=== PATIENT | female | born 1965 | race Caucasian/White ===

== ENCOUNTER 2016-05-07 09:30 | Outpatient (CLI) ==
--- NOTE | 2016-05-07 10:27 | US ---
EXAM: Thyroid ultrasound HISTORY: Nontoxic multinodular goiter. COMPARISON: Thyroid ultrasound 09/16/[address] facial bone 01/21/2008 TECHNIQUE: Sonographic evaluation of the thyroid was performed with limited doppler. FINDINGS: Right thyroid lobe measures 5.5 x 2.7 x 3.2 cm. There is mild heterogeneous echotexture. There is increased color Doppler flow. A 4.8 x 3.8 x 2.6 cm (prior 2.5 x 3.3 x 4.3 cm) heterogeneous right th yroid mass is present. This mass demonstrates increased vascularity. The isthmus measures 0.4 cm in thickness. The left lobe of the thyroid measures 4.4 x 1.0 x 2.1 cm. There is an internal solid nodule with ce ntral decreased echogenicity measuring 1.4 x 0.7 x 0.8 cm (prior 0.8 x 0.9 x 1.0 cm). This demonstr ates mild internal color Doppler flow. IMPRESSION: 1. Hypervascular right thyroid lesion/mass measures slightly enlarged when compared to 2015. The in creased measurements may be secondary to measuring technique or represent minimal increase size over time. If further evaluation is indicated, soft tissue sampling may be obtained. 2. Nodule in the left thyroid lobe is unchanged in appearance and measures minimally increased in c omparison to prior.
== END 2016-05-07 09:31 | disposition home or self-care (01) ==
LOC: RAD 09:30
PROVIDERS: ATTEND Nurse Practitioner Family
DX: E04.2 Nontoxic multinodular goiter (principal)

== ENCOUNTER 2016-05-08 06:43 | Outpatient (CLI) ==
[2016-05-08 06:55] LABS: BASOPHILS % (AUTO) 0.6 % (0.0-3.0); EOSINOPHILS # (AUTO) 0.2 K/ul (0.0-0.7); EOSINOPHILS % (AUTO) 3.4 % (0.0-7.0); HEMATOCRIT 38.9 % (37.0-47.0); HEMOGLOBIN 12.9 g/dl (12.0-16.0); IMMATURE GRANULOCYTE % (AUTO) 0.3 % (0.0-5.0); LYMPHOCYTES # (AUTO) 1.9 K/uL (0.60-3.4); LYMPHOCYTES % (AUTO) 29.1 (10.0-50.0); MEAN CORPUSCULAR HEMOGLOBIN 29.1 pg (27.0-31.0); MEAN CORPUSCULAR HGB CONC 33.2 (31.8-35.4); MEAN CORPUSCULAR VOLUME 87.6 fl (81.0-99.0); MONOCYTES # (AUTO) 0.7 K/uL (0.4-2.0); MONOCYTES % (AUTO) 10.1 (0-10); NEUTROPHILS # (AUTO) 3.7 K/ul (2.0-6.9); NEUTROPHILS % (AUTO) 56.5; PLATELET COUNT 282 10^3/uL (140-440); RED BLOOD COUNT 4.44 10^6/ul (4.20-5.40); WHITE BLOOD COUNT 6.54 K/ul (4.6-10.2)
[2016-05-08 07:31] LABS: ALBUMIN 3.6 g/dL (3.4-5.0); ALBUMIN/GLOBULIN RATIO 1.09; ANION GAP 12.8; BILIRUBIN,TOTAL 0.51 mg/dL (0.00-1.20); BUN/CREATININE RATIO 10.71; CHOL/HDL RATIO 2.9 (4.5-5.5); CREATININE 0.84 mg/dL (0.60-1.30); POTASSIUM 3.8 mmol/L (3.5-5.10); TOTAL PROTEIN 6.9 g/dL (6.4-8.2)
== END 2016-05-08 06:44 | disposition home or self-care (01) ==
LOC: RAD 06:43
PROVIDERS: ATTEND Nurse Practitioner Family
DX: Z12.31 Encounter for screening mammogram for malignant neoplasm of breast (principal); Z00.00 Encounter for general adult medical examination without abnormal findings
CPT/HCPCS: 36415; 80053; 80061; 84443; 85025

== ENCOUNTER 2017-07-16 15:18 | Outpatient (CLI) | END 2017-07-16 15:19 | disposition home or self-care (01) | LOC: RHC-LAB 15:18 | PROVIDERS: ATTEND Emergency Medicine | DX: F32.1 Major depressive disorder, single episode, moderate (principal); F41.1 Generalized anxiety disorder; I83.893 Varicose veins of bilateral lower extremities with other complications; E04.1 Nontoxic single thyroid nodule | CPT/HCPCS: 36415; 80053; 80061; 84436; 84443; 84480; 85025 ==

== ENCOUNTER 2017-08-26 15:34 | Outpatient (CLI) | END 2017-08-26 15:35 | disposition home or self-care (01) | LOC: CAR 15:34 | PROVIDERS: ATTEND Emergency Medicine | DX: I83.893 Varicose veins of bilateral lower extremities with other complications (principal); R00.2 Palpitations | CPT/HCPCS: 93005; 93010 ==

== ENCOUNTER 2017-09-08 12:50 | Outpatient (CLI) | END 2017-09-08 12:51 | disposition home or self-care (01) | LOC: CAR 12:50 | PROVIDERS: ATTEND Emergency Medicine | DX: R00.2 Palpitations (principal) | CPT/HCPCS: 93227 ==

== ENCOUNTER 2017-11-17 15:59 | Outpatient (CLI) | END 2017-11-17 16:00 | disposition home or self-care (01) | LOC: RHC-LAB 15:59 | PROVIDERS: ATTEND Nurse Practitioner Family | DX: J02.9 Acute pharyngitis, unspecified (principal) | CPT/HCPCS: 87651 ==

== ENCOUNTER 2018-01-20 08:19 | Outpatient (CLI) | END 2018-01-20 08:20 | disposition home or self-care (01) | LOC: LAB 08:19 | PROVIDERS: ATTEND Nurse Practitioner Family | DX: E89.0 Postprocedural hypothyroidism (principal) | CPT/HCPCS: 36415; 84439; 84443 ==

== ENCOUNTER 2018-08-11 11:51 | Outpatient (CLI) | END 2018-08-11 11:52 | disposition home or self-care (01) | LOC: RHC-LAB 11:51 | PROVIDERS: ATTEND Nurse Practitioner Family | DX: E89.0 Postprocedural hypothyroidism (principal); F32.9 Major depressive disorder, single episode, unspecified; E03.9 Hypothyroidism, unspecified; F41.1 Generalized anxiety disorder; F51.05 Insomnia due to other mental disorder | CPT/HCPCS: 36415; 80053; 80061; 84443; 85025 ==